=== PATIENT | male | born 1980 | race Caucasian/White ===

== ENCOUNTER → 2023-10-10 | Emergency (ER) | payer OTHER ==
[~2023-10-10] VITALS: Ht 177.8 cm; Wt 90.0 kg
[~2023-10-10] MED LIST: HYDR-3965 PO
[2023-10-10 06:54] VITALS: TEMP 97.9
[2023-10-10 07:48] LABS: BASOPHILS % (AUTO) 0.6 % (0-1); EOSINOPHILS # (AUTO) 0.4 X10'3 (0-0.9); EOSINOPHILS % (AUTO) 6.7 % (0-6); HEMATOCRIT 45.5 % (42.0-52.0); HEMOGLOBIN 15.8 g/dl (14.0-17.9); LYMPHOCYTES # (AUTO) 1.6 X10'3 (1.1-4.8); LYMPHOCYTES % (AUTO) 28.5 % (21-51); MEAN CORPUSCULAR HEMOGLOBIN 31.7 PG (27.0-31.0); MEAN CORPUSCULAR HGB CONC 34.6 g/dL (33.0-36.5); MEAN CORPUSCULAR VOLUME 91.7 FL (78-98); MONOCYTES # (AUTO) 0.5 X10'3 (0-0.9); MONOCYTES % (AUTO) 8.3 % (2-12); NEUTROPHILS # (AUTO) 3.2 X10'3 (1.8-7.7); NEUTROPHILS % (AUTO) 55.9 % (42-75); PLATELET COUNT 246 X10'3 (140-440); RED BLOOD COUNT 4.96 X10'6 (4.70-6.10); RED CELL DISTRIBUTION WIDTH 13.1 % (11.5-14.5); WHITE BLOOD COUNT 5.7 X10'3 (4.5-11.0)
[2023-10-10 08:00] LABS: ALANINE AMINOTRANSFERASE 53 U/L (12-78); ALBUMIN 3.9 G/DL (3.4-5.0); ALBUMIN/GLOBULIN RATIO 1.1 (1.1-1.5); ALKALINE PHOSPHATASE 93 IU/L (46-116); AMYLASE 24 U/L (25-115); ANION GAP 8 (8-16); ASPARTATE AMINO TRANSFERASE 24 U/L (10-37); BILIRUBIN,TOTAL 0.8 MG/DL (0.1-1.0); BLOOD UREA NITROGEN 12 MG/DL (7-18); BUN/CREATININE RATIO 10.7 (10.0-20.0); CALCIUM 8.9 MG/DL (8.5-10.1); CHLORIDE 105 MMOL/L (99-107); CREATININE 1.12 MG/DL (0.60-1.10); GLUCOSE 126 MG/DL (70-104); LIPASE 113 U/L (16-77); SODIUM 139 MMOL/L (135-145); TOTAL CARBON DIOXIDE 26.2 MMOL/L (24-32); TOTAL PROTEIN 7.5 G/DL (6.4-8.2); eCRCL 90 ML/MIN; eGFR 72 ML/MIN
[2023-10-10] MEDS: normal saline 1000ML IV soln IVB ONE ×3 (08:03→11:11)
[2023-10-10 08:10] LABS: ETHANOL < 10 MG/DL (<10)
[2023-10-10] MEDS: HYDROmorphone 1 mg/ml syringe IV SCH (08:29)
[2023-10-10] MEDS: pantoprazole 40 MG vial IV ONE (09:06)
[2023-10-10] MEDS: normal saline 1000ml 1,000 ML IV ONE (09:06)
[2023-10-10] MEDS: ketorolac trometh. 30mg/ml inj. IV ONE (09:47)
[2023-10-10] MEDS: midazolam 1 mg/ML 2ml injection IV ONE (09:57)
[2023-10-10] MEDS: ondansetron/PF 4mg/2ml inj IV ONE (09:57)
[2023-10-10] MEDS: HYDROmorphone 1 mg/ml syringe IV ONE (11:06)
[2023-10-10 11:15] VITALS: BP 127/83; PULSE 84; RESP 18; O2SAT 98
== END | disposition left against medical advice (07) ==
LOC: ER 06:44
DX: Z90.49 Acquired absence of other specified parts of digestive tract (principal); Z95.0 Presence of cardiac pacemaker; K85.20 Alcohol induced acute pancreatitis without necrosis or infection; Z95.1 Presence of aortocoronary bypass graft
CPT/HCPCS: 36415; 80053; 80320; 82150; 83690; 85025; 96361; 96365; 96375; 96376; 99284; C9113; J1170; J1885; J2250; J2405; J7030; 96374